=== PATIENT | female | born 1940 | race Caucasian/White ===

== ENCOUNTER 2018-11-02 14:20 | Observation (INO) | payer OTHER, BC ==
[2018-11-02] MEDS ORDERED: NS 1,000 ML IV ONE (14:35)
--- NOTE | 2018-11-02 14:35 | EDPHY ---
H & P Stated Complaint: Tightness across chest since this am;recent air travel, arr here last pm Time Seen by Provider: 11/02/18 14:35 HPI/ROS: HPI CHIEF COMPLAINT: Chest pressure HISTORY OF PRESENT ILLNESS: 78-year-old female, otherwise healthy does have a history of coronary artery disease with a stent placed in the 80s, also hypertension, hyperlipidemia, she is visiting her son for the holiday from [facility] she arrived in [place] yesterday. She woke up at 7:00 a.m. This morning and developed chest discomfort. She describes a dull sensation, pressure sensation across her chest. Worse when she takes deep breath in. Denies sharp pain. Denies shortness of breath or productive cough. Denies recent illness. She does complain of fatigue. Past Medical History: Hypertension, hyperlipidemia, coronary artery disease with a stent. Past Surgical History: Appendectomy, cardiac stent. Social History: Occasional alcohol use. Denies daily use of tobacco or drugs. From [facility]. Family History: Noncontributory ROS REVIEW OF SYSTEMS: 10 Systems were reviewed and negative with the exception of the elements mentioned in the history of present illness. Exam Constitutional appears well nontoxic no acute distress triage nursing summary reviewed, vital signs reviewed, awake/alert. Eyes normal conjunctivae and sclera, EOMI, PERRLA. HENT normal inspection, atraumatic, moist mucus membranes, no epistaxis, neck supple/ no meningismus, no raccoon eyes. Respiratory clear to auscultation bilaterally, normal breath sounds, no respiratory distress, no wheezing. Cardiovascular rate normal, regular rhythm, no murmur, no edema, distal pulses normal. Gastrointestinal soft, non-tender, no rebound, no guarding, normal bowel sounds, no distension, no pulsatile mass. Genitourinary no CVA tenderness. Musculoskeletal no midline vertebral tenderness, full range of motion, no calf swelling, no tenderness of extremities, no meningismus, good pulses, neurovascularly intact. Skin pink, warm, & dry, no rash, skin atraumatic. Neurologic awake, alert and oriented x 3, AAOx3, moves all 4 extremities equally, motor intact, sensory intact, CN II-XII intact, normal cerebellar, normal vision, normal speech. Psychiatric normal mood/affect. Heme/Lymph/Immune no lymphadenopathy. Differential diagnosis includes but is not limited to: ACS, atypical chest pain , pneumothorax, pneumonia, pulmonary embolism, aortic dissection, congestive heart failure, tumor, musculoskeletal pain, esophageal pain, GERD, peptic ulcer disease, pancreatitis Medical Decision Making: Plan for this patient IV establishment trestle mechanic , full-dose aspirin, nitroglycerin to see if this improves her chest discomfort , chest x-ray, D-dimer rule out acute coronary syndrome. Re-evaluation: EKG interpretation by me on record in [employer] system. Impression time of EKG 1438, sinus rhythm rate of 70 without any signs of acute ischemia but there is very subtle ST depression to 3 and AVF. Patient has a positive D-dimer. Will proceed with CT angiogram of the chest given worsening chest pain with deep inspiration. CT angiogram of the chest shows no evidence of pulmonary embolism called me by Dr. Montano [id number] patient resting comfortably. Chest pain-free. Troponin negative. EKG nonischemic. Plan for admission to the hospital for chest pressure. Her cardiovascular risk factors include her age, underlying coronary artery disease, coronary artery disease with stent, hypertension hyperlipidemia. Plan for further evaluation. I have asked the hospitalist service Dr. Anders to admit. Patient agrees for admission. Hospitalist agrees to admit. Source: Patient - Personal History Current Tetanus Diphtheria and Acellular Pertussis (TDAP): Unsure - Medical/Surgical History Hx Cardiac Disease: Yes Other PMH: card stent x 20 years. HTN - Social History Smoking Status: Never smoked Constitutional: Initial Vital Signs Temperature (C) 36.4 C 11/02/18 14:24 Heart Rate 73 11/02/18 14:24 Respiratory Rate 18 11/02/18 14:24 Blood Pressure 161/75 H 11/02/18 14:24 O2 Sat (%) 94 11/02/18 14:24 O2 Delivery Mode Nasal Cannula O2 (L/minute) 2 Allergies/Adverse Reactions: No Known Allergies Allergy (Unverified 11/02/18 14:27) Home Medications: Medication Instructions Recorded Aspirin EC [Aspirin EC 81 mg (*)] 81 mg PO DAILY 11/02/18 Atorvastatin Calcium 80 mg PO DAILY 11/02/18 Citalopram [CeleXA 20 MG] 20 mg PO DAILY 11/02/18 Diltiazem HCl [Diltiazem 24Hr ER] 120 mg PO DAILY 11/02/18 Ramipril [Altace] 10 mg PO DAILY 11/02/18 Triamterene/Hydrochlorothiazid 0.5 tab PO DAILY 11/02/18 [Triamterene-Hctz 37.5-25 mg Tb] Medical Decision Making - Data Points Laboratory Results: Laboratory Results 11/02/18 14:55 11/02/18 14:55 Medications Given: Discontinued Medications Hydrocodone Bitart/Acetaminophen ([place] 5/325) 1 - 2 tab PO Q4HRS PRN PRN Reason: Pain, Moderate Able to Take PO Stop: 11/12/18 17:59 Last Admin: 11/03/18 04:05 Dose: 1 tab Aspirin Buffered (Aspirin Ec) 325 mg PO EDNOW ONE Stop: 11/02/18 14:42 Last Admin: 11/02/18 15:00 Dose: 325 mg Aspirin Buffered (Aspirin Ec) 81 mg PO DAILY [facility] Stop: 05/02/19 08:59 Last Admin: 11/03/18 09:23 Dose: 81 mg Atorvastatin Calcium (Lipitor) 80 mg PO DAILY [facility] Stop: 05/02/19 08:59 Last Admin: 11/03/18 09:23 Dose: 80 mg Citalopram Hydrobromide (Celexa) 20 mg PO DAILY [facility] Stop: 05/02/19 08:59 Last Admin: 11/03/18 09:24 Dose: 20 mg Diltiazem HCl (Cardizem Er Q24hr) 120 mg PO DAILY [facility] Stop: 05/02/19 08:59 Last Admin: 11/03/18 09:25 Dose: 120 mg Enoxaparin Sodium (Lovenox) 40 mg SC DAILY [facility] Stop: 05/02/19 08:59 Last Admin: 11/03/18 09:29 Dose: Not Given Sodium Chloride (Ns) 1,000 mls @ 0 mls/hr IV EDNOW ONE; Wide Open PRN Reason: Protocol Stop: 11/02/18 14:36 Last Admin: 11/02/18 14:59 Dose: 1,000 mls Influenza Virus Vaccine Quadrival (Flulaval Quad [id number] (6mo+)) 0.5 ml IM .ONCE ONE Stop: 11/03/18 10:53 Last Admin: 11/03/18 11:59 Dose: 0.5 ml Nitroglycerin (Nitrostat) 0.4 mg SL EDNOW ONE Stop: 11/02/18 14:42 Last Admin: 11/02/18 15:00 Dose: 0.4 mg Pneumococcal 13-Valent Conj Vacc (Prevnar 13 Syringe) 0.5 ml IM .ONCE ONE Stop: 11/03/18 10:53 Last Admin: 11/03/18 12:01 Dose: 0.5 ml Ramipril (Altace) 10 mg PO DAILY [facility] Stop: 05/02/19 08:59 Last Admin: 11/03/18 09:24 Dose: 10 mg Triamterene/HCTZ (Maxzide-25) 0.5 each PO DAILY [facility] Stop: 05/02/19 08:59 Last Admin: 11/03/18 09:24 Dose: 0.5 each Point of Care Test Results: Chemistry 11/02/18 14:59 POC Troponin I 0.01 ng/mL ng/mL (0.00-0.08) Departure - Departure Disposition: [facility] Inpatient Acute Clinical Impression: Chest pain Condition: Fair
[2018-11-02] MEDS ORDERED: NITROGLYCERIN 0.4 MG BTL SL ONE (14:41)
[2018-11-02] MEDS ORDERED: ASPIRIN EC 325 MG TAB PO ONE (14:41)
[2018-11-02 15:06] LABS: PLATELET COUNT 248 10^3/uL (150-400)
[2018-11-02 15:14] LABS: INR 0.99 (0.83-1.16); PROTIME(PATIENT) 13.3 SEC (12.0-15.0)
[2018-11-02] MEDS ORDERED: IOPAMIDOL (ISOVUE 370) 100 ML BTL IV ONE (16:29)
[2018-11-02] MEDS ORDERED: ACETAMINOPHEN 325 MG TAB PO PRN (18:00)
[2018-11-02] MEDS ORDERED: HYDROCODONE/APAP 5/325 TAB PO PRN (18:00)
[2018-11-02] MEDS ORDERED: NS 1,000 ML IV SCH (18:00)
--- NOTE | 2018-11-02 20:38 | CPEKG ---
Test Reason : OPEN Blood Pressure : / mmHG Vent. Rate : 070 BPM Atrial Rate : 069 BPM P-R Int : 194 ms QRS Dur : 092 ms QT Int : 412 ms P-R-T Axes : 062 002 074 degrees QTc Int : 445 ms Sinus rhythm Confirmed by Piotr Dickinson ([id number]) on 11/02/2018 8:37:31 PM Referred By: Confirmed By:Piotr Dickinson
--- NOTE | 2018-11-02 22:32 | GHP ---
DATE OF ADMISSION: 11/02/2018 CHIEF COMPLAINT: Chest pain. HISTORY OF PRESENT ILLNESS: Ms Ojeda is a 78-year-old female who is currently visiting from [place], [place], with a past medical history of coronary artery disease with history of PCI approximately 2 0-30 years ago, who developed chest pain across her chest when she woke up early this morning. She d enies any shortness of breath or pleuritic-type chest pains. No radiation to her neck or to her left arm either. Due to the symptoms seeming to get worse throughout the day, she presented for medical attention. She had a mildly elevated D-dimer, so subsequently underwent CT angiography of the chest. This did not show any evidence of pulmonary embolism or otherwise any other acute findings. Her in itial troponin was negative and no worrisome findings on her ECG. However, due to her history of cor onary artery disease, it was recommended to admit for observation overnight and trend her troponins. PAST MEDICAL HISTORY: Coronary artery disease with a history of PCI, hypertension. PAST SURGICAL HISTORY: Appendectomy. MEDICATIONS: Aspirin 81 mg daily. Atorvastatin 80 mg daily. Citalopram 20 mg daily. Diltiazem 120 mg daily. Altace 10 mg daily. Triamterene/hydrochlorothiazide half a tablet daily. ALLERGIES: No known drug allergies. FAMILY HISTORY: Mother at the age of 97 of uncertain causes. Dad in his 60s secondary to congestive heart failure. SOCIAL HISTORY: Patient is . Her just earlier this year in the summer time. Cody flores is a nonsmoker. She has 1 son and 1 daughter. REVIEW OF SYSTEMS: Ten-point review of systems was obtained and negative other than stated in the HP I. PHYSICAL EXAM: VITAL SIGNS: Temperature 36.6, blood pressure 136/77, heart rate 62, respirations 12 , saturating 98% on 2 L nasal cannula. GENERAL: Patient appears comfortable. She is awake, alert, conversant, somewhat tearful at times in talking about her . HEENT: Extraocular movements in tact. No scleral icterus. NECK: Supple. No thyroid enlargement appreciated. CHEST: Clear to aus cultation with normal respiratory effort. HEART: Regular rate and rhythm. No murmurs. ABDOMEN: S oft, nontender, nondistended. : No Biggs catheter in place. EXTREMITIES: No significant pitting edema or calf pain with palpation. NEUROLOGIC: Cranial nerves 2-12 appear grossly intact with 5/5 strength in extremities. LABS: White blood cell count 5, hemoglobin 12, platelets 248. Sodium 136, potassium 3.8, chloride 1 01, bicarb 25, BUN 24, creatinine 1.1, glucose of 99. INR 0.99. D-dimer was 1.4. AST 35, ALT 36, a lkaline phosphatase 137. Troponin 0.01. BNP 106. Lipase 136. IMAGING: Chest x-ray showed cardiomegaly, otherwise no acute findings. CT scan of the chest as detailed above. ASSESSMENT/PLAN: 1. Chest pain: The patient does concede herself that it may be somewhat stress related as this is h er first holiday season without her . She was somewhat tearful on exam when discussing this. Nonetheless, she does have a history of stent placement in the past and we will admit for trending t roponins overnight. She states that she had a nuclear medicine stress test approximately 1 year ago with her laminated plastics assembler and gluer and stated that this was read as normal. Otherwise, continue with current [facility] management for coronary artery disease. 2. Elevated creatinine: Uncertain baseline. We will recheck again in the morning. 3. Hypertension: We will go ahead and resume and continue her home regimen. 4. Deep venous thrombosis prophylaxis: Lovenox. 5. Disposition: Will admit under observation status. /[id number]/MODL
[2018-11-03 07:21] VITALS: BP 139/65
[2018-11-03] MEDS ORDERED: CITALOPRAM 20 MG TAB PO SCH (09:00)
[2018-11-03] MEDS ORDERED: ATORVASTATIN CALCIUM 40 MG TAB PO SCH (09:00)
[2018-11-03] MEDS ORDERED: RAMIPRIL 5 MG CAP PO SCH (09:00)
[2018-11-03] MEDS ORDERED: TRIAMTERENE/HCTZ 37.5/25 1 EACH TAB PO SCH (09:00)
[2018-11-03] MEDS ORDERED: ASPIRIN EC 81 MG TAB PO SCH (09:00)
[2018-11-03] MEDS ORDERED: DILTIAZEM CD 120 MG CAP PO SCH (09:00)
[2018-11-03] MEDS: ENOXAPARIN 40 MG/0.4 ML SYR SC SCH ×2 (09:26→09:29)
[2018-11-03] MEDS ORDERED: PNEUMOC 13-VAL CONJ-DIP CRM/PF 0.5 ML SYR (PREVNAR 13) IM ONE (10:52)
--- NOTE | 2018-11-03 12:46 | ASMTLACE ---
LACE Length of stay for Answers: Less than 1 day current admission Acuity / Level of Answers: No Care: Did the patient have an inpatient admission? Comorbidities - select Answers: Coronary Artery Disease all that apply # of Emergency department Answers: 1-2 visits in the last 6 months Score: 3 Date Signed: 11/03/2018 12:45 PM Electronically Signed By:Adeola Lewis RN
--- NOTE | 2018-11-03 12:51 | ASDISCHSUM ---
Discharge Information Plan Status:Home with No Needs Medically Cleared to Leave:11/02/2018 Discharge Date:11/03/2018 12:47 PM D/C Disposition:Home, Routine, Self-Care ADT D/C Disposition: Projected Discharge Date:11/03/2018 12:47 PM Transportation at D/C: Discharge Delay Reason: Follow-Up Date:11/03/2018 12:47 PM Discharge Slot: Final Diagnosis: Placement Information Patient Contact Information Contact Name:PATIENTNONE Relationship: Address: Home Phone: Work Phone: City: Alternate Phone: State/[employer] Code: Email: Financial Information Financial Class:Medicare Primary Plan Desc:MEDICARE OUTPATIENT Primary Plan Number:[id number] Secondary Plan Desc: OUT OF STATE INDEMNITY Secondary Plan Number:[id number] Assessment Information LACE LACE Length of stay for Answers: Less than 1 day current admission Acuity / Level of Answers: No Care: Did the patient have an inpatient admission? Comorbidities - select Answers: Coronary Artery Disease all that apply # of Emergency department Answers: 1-2 visits in the last 6 months Score: 3 Date Signed: 11/03/2018 12:45 PM Electronically Signed By:Adeola Lewsi RN Case Management Discharge Plan Note Case Management Discharge Discharge Order Complete? Answers: Yes Patient to Obtain Answers: via Family [facility]ations Transportation Arranged Answers: Family/Friends Discharge Comments Notes: 11/03/2018 Case Management Note Attempted to deliver CAMPUZANO. Pt had left [facility] already. Pt lives in [place] and is visiting family or the holiday. Pt discharged independently with follow up as directed. Date Signed: 11/03/2018 12:50 PM Electronically Signed By:Adeola Lewis RN Intervention Information Intervention Type:CAMPUZANO-Not Delivered Date of Service:11/03/2018 12:48 PM Patient Type:Observation Staff Member:KANDI Lewis, Adeola Hours: Discipline: Severity: Comment:
--- NOTE | 2018-11-03 12:51 | ASMTDCNOTE ---
Case Management Discharge Discharge Order Complete? Answers: Yes Patient to Obtain Answers: via Family Medications Transportation Arranged Answers: Family/Friends Discharge Comments Notes: 11/03/2018 Case Management Note Attempted to deliver CAMPUZ[facility]O. Pt had left [facility] already. Pt lives in [place] and is visiting family or the holiday. Pt discharged independently with follow up as directed. Date Signed: 11/03/2018 12:50 PM Electronically Signed By:Adeola Lewis RN
--- NOTE | 2018-11-03 14:09 | PDDCSUM ---
Discharge Summary Discharge Summary: Date of Admission: 11/02/2018 Date of Discharge: 11/03/2018 Followup: PCP Hospital Course Problem List: Chest Pain - Presents with chest tightness - Hx of CAD s/p stent in - Observed overnight with negative w/u including serial Troponins and EKG - Per patient had normal MPS <1 yr ago by Primary software engineering analyst in [facility] - May have been 2/2 to stress/anxiety given without who recently - Instructed patient to return to hospital if recurrence or worsening of symptoms Elevated Cr - Unknown baseline - Improved to 1.0 this AM HTN - Continued home medication regimen Time spent on discharge was >35 minutes with >50% of time spent on patient education and counseling
== END 2018-11-03 12:47 | disposition home or self-care (01) ==
LOC: F2W 21:12
PROVIDERS: ADMIT Internal Medicine; ATTEND Internal Medicine
DX: R07.89 Other chest pain (principal); R79.89 Other specified abnormal findings of blood chemistry; I25.10 Atherosclerotic heart disease of native coronary artery without angina pectoris; E78.00 Pure hypercholesterolemia, unspecified; I10 Essential (primary) hypertension; F43.9 Reaction to severe stress, unspecified; F41.9 Anxiety disorder, unspecified; Z95.5 Presence of coronary angioplasty implant and graft
CPT/HCPCS: 71045; 71275; 90670; 90686; 93005; 96360; 99285; G0008; G0009; G0378; J1650; Q9967; 84484-ER